=== PATIENT | female | born 1980 | race Caucasian/White ===

== ENCOUNTER 2018-03-19 20:57 | Emergency (ER) | payer OTHER, MEDICAID ==
[~2018-03-19] VITALS: Ht 175.3 cm; Wt 88.5 kg
[~2018-03-19 20:57] MED LIST: AUGMENTIN 875-1 EACH PO
[2018-03-19] MEDS ORDERED: ZOLOFT25 MG PO (21:07)
[2018-03-19] MEDS ORDERED: WOMEN'S MULTI200 MCG PO (21:08)
[2018-03-19 21:27] LABS: URINE BILIRUBIN NEGATIVE (Negative); URINE BLOOD 3+ (Negative); URINE COLOR YELLOW; URINE GLUCOSE-RANDOM NEGATIVE (Negative); URINE KETONES NEGATIVE (Negative); URINE PROTEIN 2+ (Negative); URINE SPECIFIC GRAVITY 1.025 (1.005-1.030); URINE UROBILINOGEN 0.2 E.U./dl (0.2-1.0)
[2018-03-19 21:29] LABS: URINE CLARITY HAZY; URINE LEUKOCYTES-REFLEX 2+ (Negative); URINE NITRITE-REFLEX POSITIVE (Negative)
[2018-03-19 21:39] LABS: SQUAMOUS 4-10 Moderate /LPF (0-3)
[2018-03-19 21:40] LABS: BACTERIA-REFLEX >30 Many /HPF (None Seen); CASTS None Seen /LPF (None Seen); CRYSTALS None Seen /LPF (None Seen); URINE RBC 3-10 Few /HPF (0-2); URINE WBC-REFLEX >25 Many /HPF (0-5)
[2018-03-19 21:54] LABS: CALCIUM 9.3 mg/dL (8.5-10.1); POTASSIUM 3.8 mmol/L (3.5-5.1)
[2018-03-19 21:56] LABS: ABSOLUTE BASOPHILS 0.1 thou/uL (0.0-0.2); ABSOLUTE EOSINOPHILS 0.4 thou/uL (0.0-0.7); ABSOLUTE LYMPHOCYTES 3.4 thou/uL (0.8-5.3); ABSOLUTE NEUTROPHILS 7.8 thou/uL (1.6-8.1); BASOPHILS 1.1 %; EOSINOPHILS 2.8 %; HEMATOCRIT 38.7 % (37.0-47.0); HEMOGLOBIN 13.2 gm/dL (12.0-15.0); LYMPHOCYTES 27.1 %; MCH 29.8 pg (26.0-34.0); MCV 87.6 fL (80.0-100.0); MONOCYTES 7.6 %; MPV 8.1 fl. (7.2-11.1); NUCLEATED RBCS 0 /100WBC; PLATELET COUNT* 291 thou/uL (150-400); POLYS 61.4 %; RBC 4.42 mil/uL (4.20-5.00); RDW-CV 12.6 % (10.5-14.5); WBC 12.6 thou/uL (4.0-11.0)
[2018-03-19 21:59] LABS: ALBUMIN 3.2 g/dL (3.4-5.0); TOTAL BILIRUBIN 0.3 mg/dL (<0.1-1.0)
[2018-03-19] MEDS ORDERED: CIPROFLOXACIN500 M1 PO (22:07)
[2018-03-19] MEDS ORDERED: ULTRAM 50MG TAB50 MG PO (22:07)
[2018-03-19 22:33] VITALS: BP 107/71
== END 2018-03-19 22:34 | disposition home or self-care (01) ==
LOC: M.ERS 20:57
PROVIDERS: Family Medicine
DX: N12 Tubulo-interstitial nephritis, not specified as acute or chronic (principal); Z90.711 Acquired absence of uterus with remaining cervical stump

== ENCOUNTER 2018-08-09 07:13 | Emergency (ER) | payer OTHER ==
[~2018-08-09] VITALS: Ht 175.3 cm; Wt 99.8 kg
[~2018-08-09 07:13] MED LIST changes: +CIPROFLOXACIN500 M1 PO; +ULTRAM 50MG TAB50 MG PO; +WOMEN'S MULTI200 MCG PO; +ZOLOFT25 MG PO
[2018-08-09 07:48] LABS: URINE BILIRUBIN NEGATIVE (Negative); URINE BLOOD 1+ (Negative); URINE CLARITY SL CLOUDY; URINE COLOR YELLOW; URINE GLUCOSE-RANDOM NEGATIVE (Negative); URINE KETONES NEGATIVE (Negative); URINE LEUKOCYTES-REFLEX NEGATIVE (Negative); URINE NITRITE-REFLEX NEGATIVE (Negative); URINE PROTEIN NEGATIVE (Negative); URINE UROBILINOGEN 0.2 E.U./dl (0.2-1.0)
[2018-08-09 08:03] LABS: ABSOLUTE BASOPHILS 0.1 thou/uL (0.0-0.2); ABSOLUTE EOSINOPHILS 0.4 thou/uL (0.0-0.7); ABSOLUTE LYMPHOCYTES 2.2 thou/uL (0.8-5.3); ABSOLUTE MONOCYTES 0.6 thou/uL (0.0-1.2); ABSOLUTE NEUTROPHILS 7.1 thou/uL (1.6-8.1); BASOPHILS 1.3 %; EOSINOPHILS 3.4 %; HEMATOCRIT 39.6 % (37.0-47.0); HEMOGLOBIN 13.2 gm/dL (12.0-15.0); LYMPHOCYTES 21.2 %; MCH 29.4 pg (26.0-34.0); MCHC 33.3 g/dL (28.0-37.0); MCV 88.4 fL (80.0-100.0); MPV 7.7 fl. (7.2-11.1); NUCLEATED RBCS 0 /100WBC; PLATELET COUNT* 296 thou/uL (150-400); POLYS 68.1 %; RBC 4.48 mil/uL (4.20-5.00); RDW-CV 12.6 % (10.5-14.5); WBC 10.5 thou/uL (4.0-11.0)
[2018-08-09 08:06] LABS: BACTERIA-REFLEX >30 Many /HPF (None Seen); CASTS None Seen /LPF (None Seen); CRYSTALS None Seen /LPF (None Seen); SQUAMOUS >10 Many /LPF (0-3); URINE RBC 3-10 Few /HPF (0-2); URINE WBC-REFLEX 0-5 Rare /HPF (0-5)
[2018-08-09 08:09] LABS: CALCIUM 8.4 mg/dL (8.5-10.1); CREATININE 0.8 mg/dL (0.6-1.3); POTASSIUM 3.8 mmol/L (3.5-5.1)
[2018-08-09 08:14] LABS: TOTAL BILIRUBIN 0.2 mg/dL (<0.1-1.0); TOTAL PROTEIN 6.8 g/dL (6.4-8.2)
[2018-08-09] MEDS ORDERED: CYCLOBENZAPRINE5 MG PO (09:26)
[2018-08-09] MEDS ORDERED: MELOXICAM15 MG PO (09:26)
[2018-08-09 09:48] VITALS: BP 123/82
== END 2018-08-09 09:50 | disposition home or self-care (01) ==
LOC: M.ERS 07:13
PROVIDERS: Personal Emergency Response Attendant
DX: R10.32 Left lower quadrant pain (principal); Z90.710 Acquired absence of both cervix and uterus; Z98.890 Other specified postprocedural states; F17.210 Nicotine dependence, cigarettes, uncomplicated

== ENCOUNTER 2018-08-17 07:45 | Emergency (ER) | payer OTHER ==
[~2018-08-17] VITALS: Ht 182.9 cm; Wt 99.8 kg
[~2018-08-17 07:45] MED LIST changes: +CYCLOBENZAPRINE5 MG PO; +MELOXICAM15 MG PO
[2018-08-17 08:05] LABS: URINE BILIRUBIN NEGATIVE (Negative); URINE BLOOD TRACE (Negative); URINE CLARITY CLEAR; URINE COLOR YELLOW; URINE GLUCOSE-RANDOM NEGATIVE (Negative); URINE KETONES NEGATIVE (Negative); URINE LEUKOCYTES-REFLEX NEGATIVE (Negative); URINE NITRITE-REFLEX NEGATIVE (Negative); URINE PROTEIN NEGATIVE (Negative); URINE UROBILINOGEN 0.2 E.U./dl (0.2-1.0)
[2018-08-17 08:16] LABS: ABSOLUTE BASOPHILS 0.1 thou/uL (0.0-0.2); ABSOLUTE EOSINOPHILS 0.4 thou/uL (0.0-0.7); ABSOLUTE LYMPHOCYTES 2.2 thou/uL (0.8-5.3); ABSOLUTE MONOCYTES 0.6 thou/uL (0.0-1.2); ABSOLUTE NEUTROPHILS 5.5 thou/uL (1.6-8.1); BASOPHILS 0.6 %; EOSINOPHILS 4.1 %; HEMATOCRIT 44.1 % (37.0-47.0); LYMPHOCYTES 25.1 %; MCH 29.9 pg (26.0-34.0); MCV 88.1 fL (80.0-100.0); MONOCYTES 7.3 %; MPV 7.5 fl. (7.2-11.1); NUCLEATED RBCS 0 /100WBC; PLATELET COUNT* 333 thou/uL (150-400); POLYS 62.9 %; RBC 5.01 mil/uL (4.20-5.00); RDW-CV 12.7 % (10.5-14.5); WBC 8.8 thou/uL (4.0-11.0)
[2018-08-17 08:30] LABS: CALCIUM 8.9 mg/dL (8.5-10.1); CREATININE 0.8 mg/dL (0.6-1.3)
[2018-08-17 08:34] LABS: ALBUMIN 3.4 g/dL (3.4-5.0); TOTAL BILIRUBIN 0.3 mg/dL (<0.1-1.0); TOTAL PROTEIN 7.6 g/dL (6.4-8.2)
[2018-08-17] MEDS ORDERED: BENTYL 20 MG TA20 M1 PO (09:07)
[2018-08-17 09:14] VITALS: BP 129/81
== END 2018-08-17 09:15 | disposition home or self-care (01) ==
LOC: M.ERS 07:45
PROVIDERS: Emergency Medicine Emergency Medical Services
DX: R10.31 Right lower quadrant pain (principal); Z90.711 Acquired absence of uterus with remaining cervical stump

== ENCOUNTER 2018-09-07 07:40 | Emergency (ER) | payer OTHER ==
[~2018-09-07] VITALS: Ht 175.3 cm; Wt 104.3 kg
[~2018-09-07 07:40] MED LIST changes: +BENTYL 20 MG TA20 M1 PO
[2018-09-07 08:17] LABS: ABSOLUTE BASOPHILS 0.1 thou/uL (0.0-0.2); ABSOLUTE EOSINOPHILS 0.3 thou/uL (0.0-0.7); ABSOLUTE LYMPHOCYTES 2.1 thou/uL (0.8-5.3); ABSOLUTE MONOCYTES 0.7 thou/uL (0.0-1.2); ABSOLUTE NEUTROPHILS 8.8 thou/uL (1.6-8.1); BASOPHILS 0.5 %; EOSINOPHILS 2.7 %; HEMATOCRIT 43.1 % (37.0-47.0); HEMOGLOBIN 14.8 gm/dL (12.0-15.0); LYMPHOCYTES 17.4 %; MCH 30.2 pg (26.0-34.0); MCHC 34.4 g/dL (28.0-37.0); MCV 87.9 fL (80.0-100.0); MONOCYTES 5.7 %; MPV 7.7 fl. (7.2-11.1); NUCLEATED RBCS 0 /100WBC; PLATELET COUNT* 342 thou/uL (150-400); POLYS 73.7 %; RBC 4.91 mil/uL (4.20-5.00); RDW-CV 12.8 % (10.5-14.5)
[2018-09-07 08:18] LABS: URINE BILIRUBIN NEGATIVE (Negative); URINE BLOOD TRACE (Negative); URINE CLARITY CLEAR; URINE COLOR YELLOW; URINE GLUCOSE-RANDOM NEGATIVE (Negative); URINE KETONES NEGATIVE (Negative); URINE LEUKOCYTES-REFLEX NEGATIVE (Negative); URINE NITRITE-REFLEX NEGATIVE (Negative); URINE PROTEIN NEGATIVE (Negative); URINE SPECIFIC GRAVITY <= 1.005 (1.005-1.030); URINE UROBILINOGEN 0.2 E.U./dl (0.2-1.0)
[2018-09-07 08:23] LABS: CALCIUM 9.5 mg/dL (8.5-10.1); CREATININE 0.8 mg/dL (0.6-1.3)
[2018-09-07 08:27] LABS: ALBUMIN 3.7 g/dL (3.4-5.0); TOTAL BILIRUBIN 0.6 mg/dL (<0.1-1.0); TOTAL PROTEIN 8.4 g/dL (6.4-8.2)
[2018-09-07 08:28] LABS: POTASSIUM 4.2 mmol/L (3.5-5.1)
[2018-09-07] MEDS ORDERED: ZOFRAN ODT4 MG DISSOLVE (08:49)
[2018-09-07] MEDS ORDERED: HYDROCODONE-AP1 EAC6 PO (08:49)
[2018-09-07 09:05] VITALS: BP 108/73
== END 2018-09-07 09:05 | disposition home or self-care (01) ==
LOC: M.ERS 07:40
PROVIDERS: Emergency Medicine Emergency Medical Services
DX: R10.32 Left lower quadrant pain (principal); F17.200 Nicotine dependence, unspecified, uncomplicated; Z98.890 Other specified postprocedural states; Z90.711 Acquired absence of uterus with remaining cervical stump

== ENCOUNTER 2019-01-02 09:19 | Emergency (ER) | payer OTHER ==
[~2019-01-02] VITALS: Ht 182.9 cm; Wt 106.1 kg
[~2019-01-02 09:19] MED LIST changes: +HYDROCODONE-AP1 EAC6 PO; +ZOFRAN ODT4 MG DISSOLVE
[2019-01-02] MEDS ORDERED: NAPROSYN500 MG PO (10:24)
[2019-01-02] MEDS ORDERED: NORCO 5-325 TA1 EACH PO (10:24)
[2019-01-02] MEDS ORDERED: FLEXERIL PO (10:24)
[2019-01-02 10:30] VITALS: BP 121/83
== END 2019-01-02 10:31 | disposition home or self-care (01) ==
LOC: M.ERS 09:19
DX: M54.9 Dorsalgia, unspecified (principal); R07.81 Pleurodynia; F17.200 Nicotine dependence, unspecified, uncomplicated; Z90.711 Acquired absence of uterus with remaining cervical stump; Z98.890 Other specified postprocedural states

== ENCOUNTER 2019-03-07 09:27 | Emergency (ER) | payer OTHER ==
[~2019-03-07] VITALS: Ht 182.9 cm; Wt 104.3 kg
[~2019-03-07 09:27] MED LIST changes: +FLEXERIL PO; +NAPROSYN500 MG PO; +NORCO 5-325 TA1 EACH PO
[2019-03-07] MEDS ORDERED: ULTRAM 50MG TAB50 MG PO (09:47)
[2019-03-07] MEDS ORDERED: MEDROLDOSEPACK PO (09:47)
[2019-03-07 09:57] VITALS: BP 137/90
== END 2019-03-07 09:57 | disposition home or self-care (01) ==
LOC: M.ERS 09:27
DX: M25.571 Pain in right ankle and joints of right foot (principal); Z90.711 Acquired absence of uterus with remaining cervical stump